=== PATIENT | male | born 1990 | race Caucasian/White ===

== ENCOUNTER 2023-05-11 07:44 | Outpatient (CLI) | payer BC | END 2023-05-11 07:45 | disposition home or self-care (01) | LOC: BICULT 07:44 | PROVIDERS: ATTEND Nurse Practitioner Family | DX: R74.8 Abnormal levels of other serum enzymes (principal); K76.0 Fatty (change of) liver, not elsewhere classified | CPT/HCPCS: 76705 ==

== ENCOUNTER 2023-05-27 11:20 | Outpatient (CLI) | payer BC | END 2023-05-27 11:21 | disposition home or self-care (01) | LOC: DTY/OP 11:20 | PROVIDERS: ATTEND Nurse Practitioner Family | DX: K76.0 Fatty (change of) liver, not elsewhere classified (principal) | CPT/HCPCS: 97802 ==

== ENCOUNTER 2023-10-20 16:00 | Outpatient (CLI) | payer BC | END 2023-10-20 16:01 | disposition home or self-care (01) | LOC: SLEEPLAB 16:00 | PROVIDERS: ATTEND Physician Assistant | DX: G47.33 Obstructive sleep apnea (adult) (pediatric) (principal); R53.83 Other fatigue | CPT/HCPCS: 95800 ==